=== PATIENT | female | born 1955 | race Caucasian/White ===

== ENCOUNTER 2023-05-28 19:06 | Emergency (ER) | payer MEDICARE, OTHER ==
[~2023-05-28] VITALS: Ht 160 cm; Wt 72.1 kg
[2023-05-28] MEDS ORDERED: ISOVUE-370 76% 100ML VIAL As Ordered ONE (19:55)
[2023-05-28 20:23] LABS: BASO # 0.1 10^3/uL (0.0-0.2); BASO % 0.5 % (0.0-1.0); EOS # 0.2 10^3/uL (0.0-0.5); EOS % 0.8 % (0.0-3.0); HEMATOCRIT 37.5 % (36.0-47.0); HEMOGLOBIN 12.2 g/dl (12.0-15.5); LYMPH # 2.4 10^3/uL (1.5-5.0); MEAN CORPUSCULAR HEMOGLOBIN 26.9 pg (27.0-33.0); MEAN CORPUSCULAR HGB CONC 32.5 g/dl (32.0-36.5); MEAN CORPUSCULAR VOLUME 82.6 fl (80.0-96.0); MONO % 7.8 % (2.0-8.0); NEUTROPHILS # 16.9 10^3/uL (1.5-8.5); NEUTROPHILS % 77.1 % (36.0-66.0); PLATELET COUNT, AUTOMATED 390 10^3/uL (150-450); RED BLOOD COUNT 4.54 10^6/uL (4.00-5.40); WHITE BLOOD COUNT 21.9 10^3/uL (4.0-10.0)
[2023-05-28] MEDS ORDERED: ASPI81TA26 PO (20:23)
[2023-05-28] MEDS ORDERED: TOPR100T PO (20:24)
[2023-05-28] MEDS ORDERED: AMLO10TA PO (20:24)
[2023-05-28] MEDS ORDERED: LOSA50TA5 PO (20:25)
[2023-05-28] MEDS ORDERED: ATOR40TA75 PO (20:26)
[2023-05-28] MEDS ORDERED: METF-818 PO (20:27)
[2023-05-28 20:32] LABS: INR 0.9; PROTHROMBIN TIME 12.3 SECONDS (12.5-14.5)
[2023-05-28 20:33] LABS: PARTIAL THROMBOPLASTIN TIME 26.6 SECONDS (24.8-34.2)
[2023-05-28 20:34] LABS: CK-MB VALUE MASS 2.4 NG/ML (<3.6); LIPASE 65 U/L (12-53)
[2023-05-28 20:35] LABS: ETHYL ALCOHOL (ETHANOL) < 0.003 % (0.000-0.010)
[2023-05-28 20:36] LABS: ALBUMIN 3.6 G/DL (3.2-5.2); ALKALINE PHOSPHATASE 41 U/L (46-116); ALT/SGPT 11 U/L (7.0-40); AMYLASE 123 U/L (30-118); AST/SGOT 53 U/L (<34); BILIRUBIN,DIRECT 0.1 MG/DL (<0.4); BILIRUBIN,TOTAL 0.3 MG/DL (0.3-1.2); BLOOD UREA NITROGEN 24 MG/DL (9-23); CALCIUM LEVEL 8.5 MG/DL (8.3-10.6); CARBON DIOXIDE LEVEL 26 MMOL/L (20-31); CHLORIDE LEVEL 100 MMOL/L (98-107); CPK CREATINE PHOSPHOKINASE 343 U/L (34-145); CREATININE FOR GFR 0.89 MG/DL (0.55-1.30); GLOMERULAR FILTRATION RATE > 60.0 (>45); GLUCOSE, FASTING 117 MG/DL (74-106); MB/CK RELATIVE INDEX 0.69 (< OR =4); POTASSIUM SERUM 3.6 MMOL/L (3.5-5.1); SODIUM LEVEL 136 MMOL/L (136-145)
[2023-05-28 20:43] LABS: RSV AMPLIFICATION NEGATIVE (NEGATIVE)
[2023-05-28 20:45] LABS: MONO # 1.7 10^3/uL (0.0-0.8)
[2023-05-28] MEDS: MORPHINE 2 MG/ML 1ML VIAL IV PRN ×2 (21:22→23:16)
[2023-05-28 21:46] VITALS: TEMP 97.6
[2023-05-28] MEDS ORDERED: KETOROLAC 30 MG/ML 1ML VIAL IV ONE (21:50)
[2023-05-28 23:15] VITALS: BP 134/65; O2SAT 93
== END 2023-05-28 23:23 | disposition short-term general hospital (02) ==
LOC: M ED 19:06
DX: S22.050A Wedge compression fracture of T5-T6 vertebra, initial encounter for closed fracture (principal); S22.31XA Fracture of one rib, right side, initial encounter for closed fracture; S32.058A Other fracture of fifth lumbar vertebra, initial encounter for closed fracture; R00.1 Bradycardia, unspecified; E78.5 Hyperlipidemia, unspecified; F10.10 Alcohol abuse, uncomplicated; E11.9 Type 2 diabetes mellitus without complications; W10.8XXA Fall (on) (from) other stairs and steps, initial encounter; Y92.009 Unspecified place in unspecified non-institutional (private) residence as the place of occurrence of the external cause; Z88.0 Allergy status to penicillin; Z79.02 Long term (current) use of antithrombotics/antiplatelets; Z79.4 Long term (current) use of insulin; Z79.899 Other long term (current) drug therapy
CPT/HCPCS: 70450; 71260; 72125; 72128; 72131; 74177; 80047; 80048; 80076; 82077; 82150; 82550; 82553; 83605; 83690; 84484; 85025; 85610; 85730; 86850; 86900; 86901; 87631; 93005; 93041; 94760; 96374; 96375; 96376; 99285; J1885; Q9967

== ENCOUNTER → 2025-11-02 | Outpatient (REF) | payer MEDICARE, OTHER ==
[~2025-11-02] MED LIST: AMLO-751 PO; ASPI81TA26 PO; ATOR40TA75 PO; LOSA50TA5 PO; METF-1157 PO; TOPR100T PO
[2025-11-02 18:05] LABS: RBC, URINE NONE SEEN /hpf (0-3); WBC, URINE NONE SEEN /hpf (0-3)
[2025-11-02 18:06] LABS: BACTERIA, URINE NONE SEEN; HYALINE CAST, URINE NONE SEEN /lpf (0-1); SQUAMOUS EPITHELIAL CELL URINE NONE SEEN /hpf (SMALL AMT)
== END ==
LOC: M LAB REF 17:05
PROVIDERS: ATTEND Student in an Organized Health Care Education/Training Program
DX: R31.29 Other microscopic hematuria (principal)

== ENCOUNTER → 2025-11-13 | Outpatient (CLI) | payer MEDICARE, OTHER | LOC: M RAD 09:02 | PROVIDERS: ATTEND Student in an Organized Health Care Education/Training Program | DX: E11.22 Type 2 diabetes mellitus with diabetic chronic kidney disease (principal) ==